=== PATIENT | female | born 1955 | race Caucasian/White ===

== ENCOUNTER 2017-08-06 10:23 | Outpatient (CLI) | payer BC | END 2017-08-06 17:00 | disposition home or self-care (01) | LOC: HPC 10:23 | DX: K76.89 Other specified diseases of liver (principal); Z88.0 Allergy status to penicillin; R10.9 Unspecified abdominal pain; G89.29 Other chronic pain; Z80.3 Family history of malignant neoplasm of breast; Z80.8 Family history of malignant neoplasm of other organs or systems | CPT/HCPCS: Z7500 ==